=== PATIENT | female | born 1995 | race Caucasian/White ===

== ENCOUNTER 2017-07-23 05:01 | Inpatient (IN) ==
[2017-07-23] MEDS ORDERED: NOZIN NASAL SWAB NAS ONE ×2 (05:17)
[2017-07-23] MEDS ORDERED: CITRIC ACID/SODIUM CITRATE 30ml PO ONE (05:17)
[2017-07-23] MEDS ORDERED: FAMOTIDINE PB 20 MG/50 ML BAG IV ONE (05:17)
[2017-07-23] MEDS ORDERED: LR 1,000 ML IV SCH (05:30)
[2017-07-23 06:09] VITALS: BMI 40.8
[2017-07-23] MEDS ORDERED: SALINE FLUSH 10ml SYRINGE ONE ×2 (06:52→07:49)
[2017-07-23] MEDS ORDERED: EPHEDRINE 50mg/ml INJECTION ONE (06:52)
[2017-07-23] MEDS ORDERED: PHENYLEPHRINE INJ 10 MG/ML VIAL IV ONE (06:52)
[2017-07-23] MEDS ORDERED: MORPHINE SULFATE PF 5mg/10ml INJ (Duramorph) ONE (06:55)
[2017-07-23] MEDS ORDERED: FentaNYL 100 MCG/2 ML INJECTION ONE (06:57)
[2017-07-23] MEDS ORDERED: CEFAZOLIN PREMIX (MC ONLY) 2 GM/50 ML BAG IV ONE (07:00)
--- NOTE | 2017-07-23 07:03 | Anesthesia Preoperative Report ---
Anesthesia Epidural/Spinal Rec - Date and Time Date: 07/23/17 Preoperative Diagnosis: previous c section Procedure: Plan: Spinal - Vital Signs Vital Signs: Temperature 98.4 F 07/23/17 05:54 Pulse Rate 99 07/23/17 05:54 Respiratory Rate 20 07/23/17 05:54 Blood Pressure 112/69 07/23/17 05:54 Pulse Oximetry 98 07/23/17 05:54 /Para: P:2 - Medictaions & Allergies Inpatient Medications: Current Medications Cefazolin Sodium/Dextrose (Kefzol Premix ( Only)) 2 gm in 50 mls @ 100 mls/ hr IV PREOP ONE Stop: 07/23/17 07:29 Lactated Ringer's (Lactated Ringers) 1,000 mls @ 999 mls/hr IV .Q1H1M [facility] Last Admin: 07/23/17 05:47 Dose: 999 mls/hr Isopropyl Alcohol (Nozin Nasal Swab) 1 each SINDHU 0600,1400,2200 [facility] Allergies/Adverse Reactions: Allergies Allergy/AdvReac Type Severity Reaction Status Date / Time miconazole Allergy Verified 07/04/17 11:19 Sulfa (Sulfonamide Allergy Verified 07/04/17 11:19 Antibiotics) - Home Medications Home Medications: Home Medications Medication Instructions Recorded Confirmed Type Pnv No.95/Ferrous Fum/Folic AC 1 tab PO DAILY 07/04/17 07/04/17 History [ Tablet] Ranitidine 150 mg PO DAILY 07/04/17 07/04/17 History Amoxicillin [Amoxicillin] 07/23/17 History MetroNIDAZOLE 500 mg PO BID 07/23/17 07/23/17 History Triamcinolone Acetonide 07/23/17 History [Triamcinolone Acetonide] - Medical History Cardiovascular: Reports: Abnormal EKG (after 2016 delivery PVC's) Gastrointestional: Reports: Other (IBS) Neuro/Musculoskeletal: Reports: Depression Other History: Reports: Now DENIES: Anesthesia Reactions - Surgical History Reproductive Surgery/Treatment: Reports: Section (X2 FTP with first) Anesthesia Reactions: None Hx Family Anesthesia Reaction: No History of Motion Sickness: No - Social History Smoking Status: Never smoker Second Hand Exposure: No Substance Use Type: does not use Alcohol Intake Frequency: does not drink Hx Chewing Tobacco Use: No - Pertinent Findings Lab Data: CBC and BMP 07/23/17 05:41 - Physical Exam Respiratory Exam: lungs clear Cardiovascular Exam: regular rate and rhythm, no murmur - Airway Assessment Mallampati Score: I TMD: 3 Fingerbreadths Neck Extension: good Overall Assessment: no airway concerns - ASA ASA Score: 2 - Discussion Discussion: Discussed risks/options/alternatives of anesthesia and questions answered. Patient consents. Nursing pain assessment noted. Anesthesia Discussion: spouse Attestation Statement: Prior to the delivery of any anesthetic medication, I examined the patient, developed the plan, obtained the patient's consent and discussed the risk and benefits of the procedure with the patient/guardian.
[2017-07-23] MEDS ORDERED: NALBUPHINE 10 MG/ML INJECTION IVP PRN (07:05)
[2017-07-23] MEDS ORDERED: METOCLOPRAMIDE 10mg/2ml INJECTION IVP PRN (07:05)
[2017-07-23] MEDS ORDERED: NALOXONE 2 MG/2 ML INJECTION PFS IVP PRN (07:05)
[2017-07-23] MEDS ORDERED: DiphenhydrAMINE 50 MG/ML INJECTION IVP PRN (07:05)
[2017-07-23] MEDS ORDERED: ONDANSETRON 4 MG/2 ML INJECTION IVP PRN (07:05)
[2017-07-23] MEDS ORDERED: ONDANSETRON 4 MG/2 ML INJECTION ONE (07:33)
[2017-07-23] MEDS ORDERED: TRANEXAMIC ACID 1,000 MG in NS 100 ML IV ONE (07:37)
[2017-07-23] MEDS ORDERED: OXYTOCIN BOLUS BAG 30 UNIT/500 ML ML IV SCH (07:45)
[2017-07-23] MEDS ORDERED: DiphenhydrAMINE 25 MG CAPSULE PO PRN (08:23)
[2017-07-23] MEDS ORDERED: HYDROCORTISONE 2.5% CREAM 30gm RECTALLY PRN (08:23)
[2017-07-23] MEDS ORDERED: CALCIUM CARBONATE Chewable 500mg TABLET PO PRN (08:23)
[2017-07-23] MEDS ORDERED: ACETAMINOPHEN 500 MG TABLET PO PRN (08:23)
[2017-07-23] MEDS ORDERED: SIMETHICONE 80 MG CHEWABLE TABLET PO PRN (08:23)
[2017-07-23] MEDS ORDERED: OXYTOCIN DRIP 30 UNIT/500 ML ML IV SCH (08:30)
--- NOTE | 2017-07-23 08:34 | Operative Note ---
Operative Note - Date of Operation Date of Operation: 07/23/17 - General : 3 Para: 2 Estimated or Known Gestational Age (weeks): 39 Estimated or Known Gestational Age (days): 0 - Preoperative Diagnosis Previous Section, Desires sterilization - Postoperative Diagnosis same as preoperative - Procedure Repeat, Low-transverse - Surgeon Surgeon: Estephanie Lake MD - Cash Register Repairer OB Cash Register Repairer: Jono Muro SurgOma Assist - Anesthesia Anesthesia Provider: Deni Fontana CRNA Anesthesia Type: Spinal - Complications Complications: None - Estimated Blood Loss Estimated Blood Loss:: 600 - Findings Findings: viable male, clear fluids, normal uterus, normal adenexa, cephalic - APGARS : 8,9 - Bradley Weight Bradley Weight (grams): 3404 - Bradley Name Name: Eloy - Description of Procedure Description of Procedure: The patient was taken to the operating room where anesthesia was obtained . She was placed in the dorsal supine position with a leftward tilt. A Das catheter was placed . She was prepared and draped in the normal sterile fashion. A Pfannenstiel incision was made through her previous incision and carried down to the fascia. The fascia was incised in the midline with the scalpel and then extended laterally with the Bush scissors. The fascia was elevated, and the underlying rectus muscles were dissected off. The peritoneum was entered during this dissection. This was extended superiorly and inferiorly with good visualization of the bladder. There was a thick column of adhesions between the bladder and anterior uterus that were taken down sharply. A piece of omentum was also dissected off the anterior abdominal wall with the cautery. The bladder blade was inserted. A bladder flap was created sharply. The lower uterine segment was incised in a transverse fashion [id number] with the scalpel and bluntly extended. The membranes were ruptured. The infant s head was delivered atraumatically. The nose and mouth were suctioned. The cord was clamped and cut. The infant was handed to the waiting resuscitation team. The placenta delivered spontaneously. The uterus was exteriorized and cleared of all clots and debris. There was a midline uterine extension that created a flap on the lower uterus. This flap was closed with running locked, 2- 0 chromic. The uterus was closed with running, locked 0-monocryl. Hemostasis was obtained on the serosal edges with cautery. A figure of eight of 2-0 chromic was placed over the site of the previous bladder adhesions for hemostasis. A Fallopian tube was identified and carried out to the fimbriae. An avascular segment was grasped with a Nelson. The segment was ligated with chromic. Each end of the segment was ligated with chromic. The tube segment was excised, and good hemostasis was noted. The procedure was repeated on the other tube. The uterus was returned to the abdomen. The gutters were cleared of all clots and debris. The uterine incision was inspected one final time and still noted to be hemostatic. A piece of Interceed was placed over the raw anterior uterus. The peritoneum was closed with running 2-0 vicryl. Hemostasis was obtained in the rectus muscles with the cautery. The fascia was closed with running 0- vicryl. Hemostasis was obtained in the subcutaneous tissue with the cautery. The deep tissue was closed with running 2-0 chromic. The skin was closed with alex. A Provena wound vac was placed. Sponge, sharp, and instrument counts were correct. The patient tolerated the procedure well and was taken to the recovery room in good condition.
[2017-07-23] MEDS: D5LR 1,000 ML IV SCH ×2 (08:50→18:47)
[2017-07-23] MEDS: NOZIN NASAL SWAB NAS SCH ×3 (09:24→21:55)
[2017-07-23] MEDS: SIMETHICONE 80 MG CHEWABLE TABLET PO SCH ×4 (10:36→21:03)
[2017-07-23] MEDS: DOCUSATE CALCIUM 240 MG CAPSULE PO SCH (10:36)
[2017-07-23] MEDS: IBUPROFEN 800 MG TABLET PO PRN ×2 (12:34→21:03)
[2017-07-23] MEDS: HYDROCODONE/APAP 5mg/325mg TABLET PO PRN ×3 (12:34→21:52)
--- NOTE | 2017-07-23 16:46 | Anesthesia Postoperative Note ---
- Date and Time Date: 07/23/17 Time: 16:46 - Status Patient Participated in Evaluation: Patient Participated in Person Vital Signs: Temperature 98.0 F 07/23/17 12:00 Pulse Rate 68 07/23/17 12:00 Respiratory Rate 20 07/23/17 12:00 Blood Pressure 99/57 07/23/17 12:00 Pulse Oximetry 100 07/23/17 12:00 Respiratory Function: Airway Patent Cardiovascular Function: Regular Pulse Mental Status: Alert and Oriented Pain Intensity: 0 Hydration: Taking PO Fluids Complications During Recover: None Apparent - Follow-Up Instructions Instructions: Per Surgeon
[2017-07-23] MEDS: METRONIDAZOLE 500 MG PO SCH (21:05)
[2017-07-24] MEDS: HYDROCODONE/APAP 5mg/325mg TABLET PO PRN ×4 (05:11→18:24)
[2017-07-24] MEDS: IBUPROFEN 800 MG TABLET PO PRN ×2 (05:12→13:24)
[2017-07-24] MEDS: D5LR 1,000 ML IV SCH (06:25)
--- NOTE | 2017-07-24 08:14 | OB/GYN Progress Note ---
<Holly Anton - Last Filed: 07/24/17 08:11> OB-PP Progress Note - General POD:: POD1 - Subjective Date: 07/24/17 Lochia: Moderate Pain: controlled Voiding: voiding Nausea or Vomiting Present: No - Objective Vital Signs: Last Vital Signs Temp 98.1 F 07/24/17 04:15 Pulse 78 07/24/17 04:15 Resp 16 07/24/17 04:15 BP 111/61 07/24/17 04:15 Pulse Ox 99 07/24/17 04:15 Urine Output: good General: alert and oriented Abdomen: fundus firm Incision: dressed (wound vac in place) Extremities: non-tender Laboratory: Laboratory Results - last 24 hr 07/23/17 13:51 WBC 13.3 H D RBC 4.39 Hgb 8.8 L Hct 29.0 L MCV 66.1 L MCH 20.0 L MCHC 30.3 L RDW Std Deviation 41.4 Plt Count 218 MPV 10.4 - Assessment Assessment: Repeat C/S - Plan Plan: routine care <Estephanie Lake - Last Filed: 07/24/17 11:17> OB-PP Progress Note - Subjective Date: 07/24/17 - Objective Vital Signs: Last Vital Signs Temp 98.5 F 07/24/17 08:30 Pulse 83 07/24/17 08:30 Resp 14 07/24/17 08:30 BP 118/67 07/24/17 08:30 Pulse Ox 95 07/24/17 08:30 Laboratory: Laboratory Results - last 24 hr 07/23/17 13:51 WBC 13.3 H D RBC 4.39 Hgb 8.8 L Hct 29.0 L MCV 66.1 L MCH 20.0 L MCHC 30.3 L RDW Std Deviation 41.4 Plt Count 218 MPV 10.4 - Plan Doing well, and I agree with MM's note.
[2017-07-24] MEDS: SIMETHICONE 80 MG CHEWABLE TABLET PO SCH ×3 (08:36→18:25)
[2017-07-24] MEDS: IRON POLYSACCHARIDE COMPLEX 150 MG CAPSULE PO SCH (08:36)
[2017-07-24] MEDS: DOCUSATE CALCIUM 240 MG CAPSULE PO SCH (08:37)
[2017-07-24] MEDS: METRONIDAZOLE 500 MG PO SCH (10:25)
[2017-07-24] MEDS: NOZIN NASAL SWAB NAS SCH (10:25)
[2017-07-24 22:41] VITALS: RESP 16
[2017-07-25] MEDS: IBUPROFEN 800 MG TABLET PO PRN ×2 (01:15→09:12)
[2017-07-25] MEDS: HYDROCODONE/APAP 5mg/325mg TABLET PO PRN ×2 (01:15→07:11)
[2017-07-25] MEDS: SIMETHICONE 80 MG CHEWABLE TABLET PO SCH ×2 (01:17→09:12)
[2017-07-25] MEDS: METRONIDAZOLE 500 MG PO SCH ×2 (01:18→09:13)
[2017-07-25] MEDS: NOZIN NASAL SWAB NAS SCH ×3 (01:20→06:00)
[2017-07-25 07:20] VITALS: BP 132/74; PULSE 79; TEMP 97.1; O2SAT 100
--- NOTE | 2017-07-25 08:22 | OB/GYN Progress Note ---
OB-PP Progress Note - General PPD2 Maternal Group B Strep: Positive Maternal blood type: O+ Maternal Rubella Status: Immune - Subjective Date: 07/25/17 Lochia: Minimal Pain: controlled Voiding: voiding - Objective Vital Signs: Last Vital Signs Temp 97.1 F 07/25/17 04:00 Pulse 79 07/25/17 04:00 Resp 16 07/25/17 04:00 BP 132/74 07/25/17 04:00 Pulse Ox 100 07/25/17 04:00 Urine Output: good General: alert and oriented Respiratory: non-labored Abdomen: fundus firm, non-tender Incision: Wound vac in place. Extremities: non-tender - Assessment Assessment: Repeat C/S, Tubal Ligation - Plan Plan: routine care, discharge home, continue PNV
[2017-07-25] MEDS: DOCUSATE CALCIUM 240 MG CAPSULE PO SCH (09:12)
[2017-07-25] MEDS: IRON POLYSACCHARIDE COMPLEX 150 MG CAPSULE PO SCH (09:12)
== END 2017-07-25 11:55 | disposition home or self-care (01) | DRG 766 ==
LOC: MC 05:01
PROVIDERS: ADMIT Obstetrics & Gynecology; ATTEND Obstetrics & Gynecology